=== PATIENT | female | born 1985 | race Caucasian/White ===

== ENCOUNTER → 2018-03-07 | Outpatient (CLI) | payer OTHER | END | disposition home or self-care (01) | LOC: RAD 13:26 | DX: R10.9 Unspecified abdominal pain (principal) ==

== ENCOUNTER → 2019-06-12 | Outpatient (CLI) | payer OTHER | END | disposition home or self-care (01) | LOC: RAD 10:30 | DX: M22.2X2 Patellofemoral disorders, left knee (principal) ==